=== PATIENT | male | born 1940 | race Caucasian/White ===

== ENCOUNTER 2019-03-24 17:53 | Emergency (ER) | payer OTHER ==
[~2019-03-24] VITALS: Ht 182.9 cm; Wt 88.5 kg
--- NOTE | 2019-03-24 18:10 | NUR ---
pt seen and dc'd by provider
== END 2019-03-24 18:12 | disposition home or self-care (01) ==
LOC: ER 17:53
DX: S13.4XXA Sprain of ligaments of cervical spine, initial encounter (principal); V43.92XA Unspecified car occupant injured in collision with other type car in traffic accident, initial encounter; Y93.89 Activity, other specified; Y92.488 Other paved roadways as the place of occurrence of the external cause; Y99.8 Other external cause status
CPT/HCPCS: 99281